=== PATIENT | female | born 1950 | race Caucasian/White ===

== ENCOUNTER 2018-08-24 06:10 | Inpatient (IN) ==
[2018-08-24] MEDS ORDERED: CeFAZolin Syr 2,000MG/20 ML 2,000 MG/20 ML SYRINGE IVPB ONE (06:59)
[2018-08-24] MEDS ORDERED: Ringers Solution, Lactated 1,000 ML IVC SCH (07:00)
[2018-08-24] MEDS ORDERED: Lidocaine -MPF 2% 2 ML VIAL ONE ×2 (07:06→10:52)
[2018-08-24] MEDS ORDERED: Ondansetron 4 MG/2 ML VIAL ONE (07:06)
[2018-08-24] MEDS ORDERED: Dexamethasone 4 MG/ML VIAL ONE (07:06)
[2018-08-24] MEDS ORDERED: *HR* Succinylcholine 200 MG/10 ML VIAL IVP ONE (07:06)
[2018-08-24] MEDS ORDERED: Lidocaine -MPF 4% 5 ML AMPUL ONE (07:06)
[2018-08-24] MEDS ORDERED: *HR* FentaNYL (PF) 100 MCG/2 ML VIAL ONE (07:13)
[2018-08-24] MEDS ORDERED: *HR* Propofol 200 MG/20 ML VIAL IVP ONE (07:13)
[2018-08-24] MEDS ORDERED: Heparin 1,000 UNITS/500 mL 500 ML ONE (07:15)
[2018-08-24] MEDS ORDERED: *HR* Remifentanil 1 MG VIAL IVP ONE ×2 (07:15→09:41)
--- NOTE | 2018-08-24 07:20 | Anesthesia Evaluation PreOp ---
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: Other (bilateral carotid stenosis) Other Medical History: Denies Any Significant HX Anesthesia History: No Prior Anesthetic Complications, Past Anesthesia (cataract, D&C, cardiac stents) Alcohol Use: none Drug use: none Medications and Allergies Aspirin [Lo-Dose Aspirin EC] 81 mg PO DAILY 08/13/18 [History] Metoprolol Succinate [K[place]sp[place] Sprinkle] 25 mg PO DAILY 08/13/18 [History] Rosuvastatin Calcium [Crestor] 10 mg PO DAILY 08/13/18 [History] Allergy/AdvReac Type Severity Reaction Status Date / Time codeine Allergy Rash Verified 08/13/18 12:34 - Meds/Allergy Pre-op Review Medications Reviewed: Yes Allergies Reviewed: Yes Beta Blockers on Current Med List: Yes (metoprolol) If Beta Blockers taken, Date/Time (Last Dose taken): 08-24-18 metoprolol at 5 am Anesthesia Results - Labs Laboratory Tests 08/05/18 08/05/18 08/05/18 08:51 08:51 08:51 WBC 8.6 Hgb 15.3 Hct 48.2 H Plt Count 253 PT 11.1 INR 1.0 APTT 31.3 Sodium 139 Potassium 3.9 Chloride 106 Carbon Dioxide 27 BUN 11 Creatinine 0.79 Est GFR ( Amer) > 60 Est GFR (Non-Af Amer) > 60 BUN/Creatinine Ratio 14 Glucose 162 H Calculated Osmolality 291 Calcium 9.3 - Imaging EKG: report reviewed, image reviewed (SINUS RHYTHM BORDERLINE LEFT AXIS DEVIATION ST DEVIATION AND MODERATE T-WAVE ABNORMALITY, CONSIDER ANTEROLATERAL ISCHEMIA) Anesthesia Exam Last Vital Signs Temp 98.6 F 08/24/18 06:37 Pulse 69 08/24/18 06:37 Resp 18 08/24/18 06:37 BP 122/75 08/24/18 06:37 Pulse Ox 96 08/24/18 06:37 Weight: 84 kg NPO (# of Hours): > 8 hrs - HEENT Pupil (Motor): Pupils equal, EOMI Mallampati: II Teeth: Missing, Poor dentition Oral Opening: Greater than 3 - DAMPER FITTER LOC: Oriented - Cardiac Rhythm: Regular Murmur: None - Pulmonary Breath Sounds: bilateral Clear Respiratory Effort: Symmetrical Anesthesia Assess/Plan ASA Score: 3 Level of consciousness: Cooperative Anesthetic Plan: General Monitoring Plan: Standard Monitors, A-Line Recovery Plan: PACU
[2018-08-24] MEDS ORDERED: Heparin 1,000 UNITS/500 mL 1,000 ML ONE (07:22)
[2018-08-24] MEDS ORDERED: Lidocaine 1% 20 ML MDV ONE (07:22)
[2018-08-24] MEDS ORDERED: Protamine Sulfate 50 MG/5 ML VIAL IVP ONE (07:22)
--- NOTE | 2018-08-24 07:38 | History & Physical Report ---
Date of Encounter: 08/24/18 Time of Encounter: 07:25 24 Hour HP Update - Instructions Instructions: If the History and Physical is less than 30 days old and was completed prior to A.M. admission and or procedure and has NOT been updated on calendar day of procedure please complete this update prior to performing procedure. - Update Patient reports changes in Medical Condition: No Changes in examination, assessment, or condition: No Changes in Medication: No Preop tests/diagnostics Reviewed: Yes Surgery Remains Indicated: Yes Consent for Planned Operative Procedure(s) Verified: Yes - Pre-Operative Checklist Preoperative Checklist Indicated: Yes Prophylactic Antibiotic Ordered: Yes Home Medications Include Beta Jackson: Yes Beta Jackson Taken Today (Day of Surgery): Yes Beta Jackson Taken Yesterday (Day Prior to Surgery): Yes Is VTE Prophylaxis Indicated?: Yes
[2018-08-24] MEDS ORDERED: *HR* Promethazine 25 MG/ML VIAL IVP PRN (07:45)
[2018-08-24] MEDS ORDERED: Albuterol 2.5 MG/3 ML NEBULIZER IH ONE (07:45)
[2018-08-24] MEDS ORDERED: *HR* OxyCODONE Immed Rel 5 MG TABLET PO PRN (07:45)
[2018-08-24] MEDS ORDERED: ceFAZolin 1,000 MG, Sodium Chloride IRRigation 1,000 ML IR ONE (07:45)
[2018-08-24] MEDS ORDERED: EPHEDrine 50 MG/ML VIAL ONE (08:19)
--- NOTE | 2018-08-24 08:22 | Anesthesia Procedures ---
Date of Encounter: 08/24/18 Time of Encounter: 07:55 Procedures: Anesthesia - Arterial Line Consent obtained: written consent Time out performed: Yes Supplemental Oxygen via Nasal Cannula (L/min): 15 (GETA) Size (Gauge): 20 Length (inches): 1 3/4 Technique Used: sterile prep, guide wire technique, direct puncture technique Post-Procedure: line taped into place, dry sterile dressing placed Patient tolerated procedure: well, no complications Complications: none Site: Radial R Vitals: see anesthetic record
[2018-08-24] MEDS ORDERED: *HR* Heparin 5,000 UNIT/ML VIAL ONE (09:13)
--- NOTE | 2018-08-24 10:52 | Operative Note ---
Date of procedure: 08/24/18 Pre-op diagnosis: left carotid stenosis Post-op diagnosis: same Procedure: left carotid endarterectomy with 8 Fr shunt and patch angioplasty Complications: 0 Anesthesia: ALTHEAA Surgeon: Carlitos Rosario Was there an transition assistant present: No Estimated blood loss (cc): 100 Specimen: 0 Condition: stable Disposition: PACU Procedure in Detail: History Sendy Giles is a 68-year-old white female. She was found to have a asymptomatic carotid bruit. This little carotid duplex scan which showed marked abnormalities of the left internal carotid artery. She was then referred to vascular surgery and antrum was obtained. This demonstrated a critical stenosis of the left carotid system. There is no significant stenosis in the right carotid system. The patient is admitted to the operating room today for repair of this left carotid lesion. Procedure After informed consent was obtained the patient was taken to the operating room. General endotracheal anesthesia was established under arterial line pressure monitoring. The left neck was sterilely prepped and draped. A timeout protocol was observed. An oblique incision was then made on the left neck. Dissection was carried down to the carotid system. Patient was found to have a very high bifurcation of the left carotid system. Selective control was obtained of the carotid vessels. 5000 units of heparin were administered intravenously. After 3 minute delay the vessels were clamped with the internal carotid artery clamped first. Using an 11 blade knife and Falk scissors the artery was opened beginning at the distal common carotid and extending through the bulbar region up on into the internal carotid artery. An 8-Gibraltarian shunt was then inserted atraumatically. Patency of the shunt was confirmed by the use of intraoperative Doppler. Evaluation of the plaque revealed a heterogeneous plaque that was significantly calcified. The degree of stenosis was critical as depicted by the angiogram. There were no intraluminal thrombus identified or intramural thrombus identified. The dissection was then begun and the endarterectomy performed of the left carotid system. This began at the distal aspect of the common carotid artery. A dissection plane was established circumferentially. This was then carried proximally and distally. The external carotid and superior thyroid artery were also endarterectomized. The endpoint on the internal was smooth and no tacking sutures were necessary. The bed of the vessel was then inspected for a residual debris. A bovine pericardial patch angioplasty was then performed. This was sewn into position using 2 6-0 Prolene sutures. Leaving a small opening on the suture line the 8-Gibraltarian shunt was clamped and divided and removed. The final few sutures were then placed. The left internal carotid artery was allowed to backbleed and reclamped. The external and common were opened and finally the internal was reopened. The patient tolerated this well. She had no hemodynamic distress. Excellent pulsations and Doppler signals were identified throughout the carotid system. A superficial cervical block using half percent Marcaine was then performed. The wound was then closed in layers after irrigation with antibiotic with absorbable suture. No drains were placed. A dry sterile dressing was applied. The patient tolerated the procedure well. There were no intraoperative complications. Patient was extubated in the operating room and found to be neurologically intact. She was taken to the recovery room in stable condition.
[2018-08-24] MEDS ORDERED: *HR* HYDROcodone/Acet 5/325 mg TABLET PO PRN (13:45)
[2018-08-24] MEDS ORDERED: Naloxone 0.4 MG/ML INJ IVP PRN (13:45)
[2018-08-24 14:20] LABS: Basophils % 0.2 %; Hematocrit 40.7 % (35.3-44.9); Hemoglobin 13.3 g/dL (11.5-15.4); Immature Granulocytes % 0.3 % (0-4); Lymphocytes % 6.1 %; Mean Corpuscular HGB Conc 32.7 g/dL (31.6-35.5); Mean Corpuscular Hemoglobin 27.8 pg (28.0-33.3); Mean Corpuscular Volume 85.1 fL (83.0-100.0); Monocytes # 0.2 K/mcL (0.0-1.3); Neutrophils # 14.6 K/mcL (1.6-8.9); Platelet Count 229 K/mcL (140-400); Red Blood Count 4.78 M/mcL (3.82-4.97); Red Cell Distribution Width 13.5 % (11.5-14.5); Segmented Neutrophils % 92.4 %
--- NOTE | 2018-08-24 14:53 | Anesthesia Evaluation Post Op ---
Date of Encounter: 08/24/18 Time of Encounter: 12:57 - Discharge PostOp Status: Transfer Patient to floor (Patient's vital signs have been reviewed. Patient is stable postoperatively and has adequately recovered from anesthesia. Patient is determined to have stable airway patency and respiratory function including respiratory rate and oxygen saturation. Patient has a stable heart rate, blood pressure and adequate hydration. Patients mental status is acceptable. Patients temperature is appropriate. Pain and nausea are adequately controlled.)
[2018-08-24] MEDS: Acetaminophen 325 MG TABLET PO PRN (20:27)
[2018-08-25 04:09] LABS: Hematocrit 39.2 % (35.3-44.9); Hemoglobin 12.9 g/dL (11.5-15.4); Mean Corpuscular HGB Conc 32.9 g/dL (31.6-35.5); Mean Corpuscular Hemoglobin 27.7 pg (28.0-33.3); Mean Corpuscular Volume 84.1 fL (83.0-100.0); Mean Platelet Volume 9.9 fL (9.4-12.4); Platelet Count 236 K/mcL (140-400); Red Blood Count 4.66 M/mcL (3.82-4.97); Red Cell Distribution Width 13.6 % (11.5-14.5)
[2018-08-25 04:28] LABS: BUN/Creatinine Ratio 19 (6-26); Blood Urea Nitrogen 13 mg/dL (8-23); Calcium 8.4 mg/dL (8.6-10.3); Carbon Dioxide 25 mEq/L (23-29); Chloride 106 mEq/L (98-107); Glucose 213 mg/dL (70-105); Osmolality,Calculated 288 (280-300); Potassium 4.1 mEq/L (3.5-5.1); Sodium 136 mEq/L (136-145); eGFR For Non-African Americans > 60 (> 60)
[2018-08-25] MEDS: Acetaminophen 325 MG TABLET PO PRN (06:07)
[2018-08-25 07:21] VITALS: BP 120/68
--- NOTE | 2018-08-25 07:55 | Discharge Summary ---
Date of Encounter: 08/25/18 Time of Encounter: 07:53 - Discharge Diagnosis (1) Carotid stenosis Priority: Primary Status: Acute Comments: Patient was found to have an asymptomatic carotid bruit. This led to noninvasive testing and angiography. She is now status post left carotid endarterectomy for high-grade left carotid artery lesion. The patient tolerated the procedure well. Qualifiers: Laterality: bilateral Qualified Code(s): I65.23 - Occlusion and stenosis of bilateral carotid arteries (2) COPD (chronic obstructive pulmonary disease) Priority: Secondary Status: Chronic Comments: Patient has chronic COPD Qualifiers: COPD type: unspecified COPD Qualified Code(s): J44.9 - Chronic obstructive pulmonary disease, unspecified (3) Hyperlipidemia Priority: Secondary Status: Chronic Comments: Patient has chronic hyperlipidemia she is undergoing treatment with a statin agent Qualifiers: Hyperlipidemia type: other hyperlipidemia Qualified Code(s): E78.49 - Other hyperlipidemia; E78.4 - Other hyperlipidemia - Hospital Course Hospital course: Ms. Giles is a 68 year old female Who was admitted for elective left carotid endarterectomy. The patient tolerated the procedure well. There were no periprocedural or anesthetic problems. The patient had an uneventful recovery. She was felt fit for discharge on postoperative day #1. Instructions regards to diet and exercise and medications and wound care were reviewed with the patient prior to discharge. - Time Spent with Patient Total time spent providing and/or coordinating discharge services: - Discharge Medications Home Medications: RX: Aspirin [Lo-Dose Aspirin EC] 81 mg PO DAILY 08/13/18 [History] RX: Rosuvastatin Calcium [Crestor] 10 mg PO DAILY 08/13/18 [History] RX: Metoprolol Succinate [Toprol Xl] 25 mg PO DAILY 08/24/18 [History] Allergies/Adverse Reactions: Allergy/AdvReac Type Severity Reaction Status Date / Time codeine Allergy Rash Verified 08/24/18 07:22 Date of admission: 08/24/18 13:45 Primary care physician: PCP NONE Consults: None Procedure(s) Performed: Left carotid endarterectomy with patch angioplasty Discharging clinician: Carlitos Lott Anticipated date of discharge: 08/25/18 Exam Vital Signs, Last 4 Hours Temp Pulse Resp BP Pulse Ox 08/25/18 07:00 60 18 120/68 91 08/25/18 06:20 97.9 F 08/25/18 06:00 75 20 146/70 95 08/25/18 05:00 68 20 138/64 95 08/25/18 04:52 98.2 F 08/25/18 04:00 61 16 128/57 96 General: Present: Conversant, No Apparent Distress HEENT: Present: Atraumatic, Normocephaly Neck: Absent: JVD Cardiac: Present: Reg Rate and Rhythm Lungs: Present: Decreased breath sounds Neuro: Present: Alert and responsive, No focal deficits noted, Cranial nerves grossly intact, Motor nerves grossly intact, Sensory nerves grossly intact Vascular: Present: Surgical incisions (Left neck incision is clean and dry) - Patient Status Disposition: Home, Self-Care Condition: Good Functional capacity at discharge: independent ambulation Overall status at discharge: patient is progressing back to baseline - Discharge Instructions Follow Up With: Nicole Tovar CNP [Advanced Practice Nurse] - 09/01/18 8:40 am (Please bring a photo ID and copay to your visit.) NONE,PCP [Primary Care Provider] - Cariltos Lott MD [Partnered Physician] - 09/15/18 9:30 am Additional Instructions: HOLD PRESSURE TO LEFT NECK WHEN YOU COUGH LAUGH OR SNEEZE, MAY SHOWER THURSDAY, USE NO SCENTED SOAPS, NO LOTIONS, OINTMENTS OR POWDERS. WATCH FOR BLEEDING, CALL DR LOTT WITH ANY DRAINAGE, OR IF YOU HAVE ANY QUESTIONS. TAKE TEMP EVERY DAY FOR 7 DAYS IF TEMP OVER [address] LOTT. - Diet and Activity Activity: increase activity as tolerated Diet: low fat, low cholesterol
[2018-08-25] MEDS ORDERED: Metoprolol XL (24 HR) Succ 25 MG TAB.ER.24H PO SCH (09:00)
[2018-08-25] MEDS ORDERED: Aspirin Enteric Coated 81 MG Tablet PO SCH (09:00)
== END 2018-08-25 10:25 | disposition home or self-care (01) | DRG 39 ==
LOC: SAMDAY 06:10 → ICNU 13:45
PROVIDERS: ADMIT Surgery Vascular Surgery; ATTEND Surgery Vascular Surgery